=== PATIENT | female | born 1990 | race Caucasian/White ===

== ENCOUNTER 2020-05-12 17:10 | Emergency (ER) | payer OTHER ==
[2020-05-12 18:12] LABS: Urine Bacteria NONE SEEN /HPF (NONE SEEN); Urine Blood NEGATIVE (NEG); Urine Culture Reflex Order NOT NEEDED; Urine Glucose NEGATIVE (NEG); Urine Protein NEGATIVE (NEG); Urine RBC NONE SEEN /HPF (NONE SEEN); Urine Specific Gravity 1.015 (1.005-1.030)
--- NOTE | 2020-05-12 18:19 | EDPHYS ---
Physician Documentation [facility] Name: Elli Mills Age: 29 yrs Sex: Female : 1990 Arrival Date: 05/12/2020 Time: 17:13 Bed 17 Private MD: ED Physician Nimesh Benjamin HPI: 05/12 18:14 This 29 yrs old Male presents to ER via Ambulatory with complaints of Back kb Pain. 18:14 The patient presents with perineal itching. Onset: The symptoms/episode began/occurred kb 2 week(s) ago. Modifying factors: The symptoms are alleviated by nothing, the symptoms are aggravated by nothing. Associated signs and symptoms: The patient has no apparent associated signs or symptoms. Severity of symptoms: At their worst the symptoms were moderate, in the emergency department the symptoms have resolved. The patient has not experienced similar symptoms in the past. The patient has not recently seen a physician. "I thought I had a yeast infection because I had some itching so I did the Monistat 7 day treatment. The itching is better now, but I thought I would come in to get checked anyway because I have a new partner." Pt educated on STD clinic in [place] to follow up with for routine STD testing without symptoms. Pt states "I came here so I didn't have to go to the clinic in [place]. I didn't know there was one closer.". Historical: - Allergies: 17:22 Sulfa (Sulfonamide Antibiotics); aa5 - PMHx: 17:22 SVT; aa5 - PSHx: 17:22 Heart Ablation; aa5 - Immunization history:: Adult Immunizations unknown. - Social history:: Smoking status: Patient reports the use of cigarette tobacco products, denies chronic smoking, but will smoke occasionally. ROS: 18:17 Constitutional: Negative for fever, chills, and weight loss, Cardiovascular: Negative kb for chest pain, palpitations, and edema, Respiratory: Negative for shortness of breath, cough, wheezing, and pleuritic chest pain, Abdomen/GI: Negative for abdominal pain, nausea, vomiting, diarrhea, and constipation, Back: Negative for injury and pain, MS/Extremity: Negative for injury and deformity, Skin: Negative for injury, rash, and discoloration, Neuro: Negative for headache, weakness, numbness, tingling, and seizure. 18:17 : Positive for vaginal itching - resolved. Exam: 18:17 Constitutional: This is a well developed, well nourished patient who is awake, alert, kb and in no acute distress. Head/Face: Normocephalic, atraumatic. Chest/axilla: Normal chest wall appearance and motion. Nontender with no deformity. No lesions are appreciated. Cardiovascular: Regular rate and rhythm with a normal S1 and S2. No gallops, murmurs, or rubs. Normal PMI, no JVD. No pulse deficits. Respiratory: Lungs have equal breath sounds bilaterally, clear to auscultation and percussion. No rales, rhonchi or wheezes noted. No increased work of breathing, no retractions or nasal flaring. Abdomen/GI: Soft, non-tender, with normal bowel sounds. No distension or tympany. No guarding or rebound. No evidence of tenderness throughout. Back: No spinal tenderness. No costovertebral tenderness. Full range of motion. Skin: Warm, dry with normal turgor. Normal color with no rashes, no lesions, and no evidence of cellulitis. MS/ Extremity: Pulses equal, no cyanosis. Neurovascular intact. Full, normal range of motion. Neuro: Awake and alert, GCS 15, oriented to person, place, time, and situation. Cranial nerves II-XII grossly intact. Motor strength 5/5 in all extremities. Sensory grossly intact. Cerebellar exam normal. Normal gait. Vital Signs: 17:19 BP 127 / 75; Pulse 90; Resp 16 S; Temp 98.7(O); Pulse Ox 100% on R/A; Weight 58.97 kg aa5 (R); Height 5 ft. 4 in. (162.56 cm) (R); 17:19 Body Mass Index 22.31 (58.97 kg, 162.56 cm) aa5 MDM: 17:32 Patient medically screened. kb 18:14 Data reviewed: vital signs, nurses notes. Data interpreted: Pulse oximetry: on room air kb is 100 %. Interpretation: normal. Counseling: I had a detailed discussion with the patient and/or guardian regarding: the historical points, exam findings, and any diagnostic results supporting the discharge/admit diagnosis, lab results, the need for outpatient follow up, an OB/Gyne specialist, to return to the emergency department if symptoms worsen or persist or if there are any questions or concerns that arise at home. 05/12 17:28 Order name: Urine Microscopic Only; Complete Time: 18:13 kb 05/12 17:54 Order name: Urine Dipstick--Ancillary (enter results); Complete Time: 18:13 em1 05/12 17:28 Order name: Urine Test (obtain specimen); Complete Time: 17:53 kb 05/12 17:28 Order name: Urine Dipstick-Ancillary (obtain specimen); Complete Time: 17:53 kb 05/12 17:54 Order name: Urine --Ancillary (enter results); Complete Time: 18:13 em1 Administered Medications: No medications were administered Disposition: 18:33 Co-signature as Attending Physician, Nimesh Benjamin MD. rn Disposition: 05/12/20 18:18 Discharged to Home. Impression: Person with feared health complaint in whom no diagnosis is made. - Condition is Stable. - Discharge Instructions: Sexually Transmitted Disease, [id number], Safe Sex. - Prescriptions for Fluconazole 150 mg Oral Tablet - take 1 tablet by ORAL route once daily; 1 tablet. - Medication Reconciliation Form, Thank You Letter, Antibiotic Education, Prescription Opioid Use form. - Follow up: Emergency Department; When: As needed; Reason: Worsening of condition. Follow up: Private Physician; When: 2 - 3 days; Reason: Recheck today's complaints, Continuance of care, Re-evaluation by your physician. Signatures: Dispatcher [employer] Cinda Goldberg, AUTO BODY DETAILER-C AUTO BODY DETAILER-Ckb Nimesh Benjamin MD MD rn Calderon, Audri, RN RN aa5 Wong Kraft RN RN bp Corrections: (The following items were deleted from the chart) 18:32 18:18 05/12/2020 18:18 Discharged to Home. Impression: Person with feared health bp complaint in whom no diagnosis is made. Condition is Stable. Forms are Medication Reconciliation Form, Thank You Letter, Antibiotic Education, Prescription Opioid Use. Follow up: Emergency Department; When: As needed; Reason: Worsening of condition. Follow up: Private Physician; When: 2 - 3 days; Reason: Recheck today's complaints, Continuance of care, Re-evaluation by your physician. kb
--- NOTE | 2020-05-12 18:19 | ER ---
Nurse's Notes [facility] Name: Elli Mills Age: 29 yrs Sex: Female : 1990 Arrival Date: 05/12/2020 Time: 17:13 Bed 17 Private MD: Diagnosis: Person with feared health complaint in whom no diagnosis is made Presentation: 05/12 17:19 Chief complaint: Patient states: low back pain and vaginal itching. Pt states "I though aa5 I had a yeast infection and have been taking Monistat but not helping". Pt also states "I have a new partner so I just want to be checked too". Pt denies vaginal discharge, denies burning with urination. Coronavirus screen: Client denies travel out of the [place] in the last 14 days. At this time, the client does not indicate any symptoms associated with coronavirus-19. Ebola Screen: Patient negative for fever greater than or equal to 101.5 degrees Fahrenheit, and additional compatible Ebola Virus Disease symptoms. Initial Sepsis Screen: Does the patient meet any 2 criteria? No. Patient's initial sepsis screen is negative. Does the patient have a suspected source of infection? No. Patient's initial sepsis screen is negative. Risk Assessment: Do you want to hurt yourself or someone else? Patient reports no desire to harm self or others. Onset of symptoms was May 2020. 17:19 Method Of Arrival: Ambulatory aa5 17:19 Acuity: YASH 4 aa5 Triage Assessment: 17:20 General: Appears in no apparent distress. comfortable, Behavior is calm, cooperative, bp appropriate for age. Pain: Complains of pain in low back area. EENT: No deficits noted. Neuro: No deficits noted. Cardiovascular: No deficits noted. Respiratory: No deficits noted. GI: No signs and/or symptoms were reported involving the gastrointestinal system. : Reports VAGINAL ITCHING WITHOUT DISCHARGE. Derm: No deficits noted. Musculoskeletal: No deficits noted. Historical: - Allergies: 17:22 Sulfa (Sulfonamide Antibiotics); aa5 - PMHx: 17:22 SVT; aa5 - PSHx: 17:22 Heart Ablation; aa5 - Immunization history:: Adult Immunizations unknown. - Social history:: Smoking status: Patient reports the use of cigarette tobacco products, denies chronic smoking, but will smoke occasionally. Screenin:20 Abuse screen: Denies threats or abuse. Denies injuries from another. Nutritional bp screening: No deficits noted. Tuberculosis screening: No symptoms or risk factors identified. Fall Risk None identified. Assessment: 17:20 General: SEE TRIAGE NOTE. bp 18:31 Reassessment: PT D/C HOME AMBULATORY, DX WITH STD. bp Vital Signs: 17:19 BP 127 / 75; Pulse 90; Resp 16 S; Temp 98.7(O); Pulse Ox 100% on R/A; Weight 58.97 kg aa5 (R); Height 5 ft. 4 in. (162.56 cm) (R); 17:19 Body Mass Index 22.31 (58.97 kg, 162.56 cm) aa5 ED Course: 17:13 Patient arrived in ED. aa5 17:19 Arm band placed on. aa5 17:20 Patient has correct armband on for positive identification. Bed in low position. Call bp light in reach. Side rails up X2. 17:21 Triage completed. aa5 17:27 Cinda Goldberg FNP-C is [facility]. kb 17:27 Nimesh Benjamin MD is Attending Physician. kb 17:34 Wong Kraft, RN is Primary Nurse. bp 18:31 No provider procedures requiring assistance completed. Patient did not have IV access bp during this emergency room visit. Administered Medications: No medications were administered Outcome: 18:18 Discharge ordered by . kb 18:31 Discharged to home ambulatory. bp 18:31 Condition: stable 18:31 Discharge instructions given to patient, Instructed on discharge instructions, follow up and referral plans. medication usage, Demonstrated understanding of instructions, follow-up care, medications, Prescriptions given X 1. 18:32 Patient left the ED. bp Signatures: Cinda Goldberg FNP-C FNP-Ckb Calderon, Audri RN RN aa5 Wong Kraft, DYAN RN bp
[2020-05-12 19:19] VITALS: BP 127/75; TEMP 98.7; O2SAT 100
== END 2020-05-12 18:32 | disposition home or self-care (01) ==
LOC: ER 17:10 → EDSEX 17:10 → ER 18:32
DX: Z71.1 Person with feared health complaint in whom no diagnosis is made (principal); F17.210 Nicotine dependence, cigarettes, uncomplicated; Z88.2 Allergy status to sulfonamides
CPT/HCPCS: 81003; 81015; 81025; 99282